=== PATIENT | female | born 1950 | race Caucasian/White ===

== ENCOUNTER 2019-12-13 08:27 | Emergency (ER) | payer MEDICARE, OTHER ==
[~2019-12-13] VITALS: Ht 172.7 cm; Wt 72.7 kg
[2019-12-13] MEDS ORDERED: HYDROcodone/acetaminophen 10/325mg tab PO STA (08:42)
[2019-12-13] MEDS ORDERED: ondansetron 4mg rapidly disintigrating tab PO ONE (09:45)
[2019-12-13] MEDS ORDERED: ONDA4TAB6 PO (09:47)
[2019-12-13] MEDS ORDERED: HYDR-3965 PO (09:47)
[2019-12-13 10:17] VITALS: BP 111/44
== END 2019-12-13 10:19 | disposition home or self-care (01) ==
LOC: ER 08:28
DX: S42.412A Displaced simple supracondylar fracture without intercondylar fracture of left humerus, initial encounter for closed fracture (principal); Z79.899 Other long term (current) drug therapy; W01.0XXA Fall on same level from slipping, tripping and stumbling without subsequent striking against object, initial encounter; Y93.89 Activity, other specified; Y92.89 Other specified places as the place of occurrence of the external cause; Y99.8 Other external cause status
CPT/HCPCS: 29105; 73080; 99283